=== PATIENT | male | born 1985 | race African-American/Black ===

== ENCOUNTER 2023-01-07 15:36 | Emergency (ER) | payer MEDICAID, OTHER ==
[~2023-01-07] VITALS: Ht 182.9 cm; Wt 90.0 kg
[2023-01-07 15:58] VITALS: BP 166/102
[2023-01-07] MEDS ORDERED: ACETAMINOPHEN 325MG TABLET PO ONE (17:00)
[2023-01-07] MEDS ORDERED: IBUP-2028 MT (17:51)
== END 2023-01-07 18:35 | disposition home or self-care (01) ==
LOC: ER 15:36
DX: S13.9XXA Sprain of joints and ligaments of unspecified parts of neck, initial encounter (principal); I10 Essential (primary) hypertension; W18.30XA Fall on same level, unspecified, initial encounter; Y93.67 Activity, basketball; Y92.89 Other specified places as the place of occurrence of the external cause; Y99.8 Other external cause status
CPT/HCPCS: 99284